=== PATIENT | female | born 1975 | race Caucasian/White ===

== ENCOUNTER 2021-10-18 13:55 | Outpatient (CLI) | payer OTHER, SELFPAY ==
[2021-10-18 14:20] LABS: Hemoglobin* 13.1 gm/dL (12.0-16.0)
[2021-10-20 11:00] LABS: Estradiol Premenol Female 68 pg/mL
[2021-10-20 20:19] LABS: Luteinizing Hormone 4.1 IU/L
[2021-10-20 22:49] LABS: Sex Hormone Binding Globulin 121 nmol/L (25-122); Testosterone, Adult Male < 3 ng/dL; Testosterone, Free Calculation < 1 pg/mL; Testosterone, Percentage Free < 0.7 %
== END 2021-10-18 13:56 | disposition home or self-care (01) ==
PROVIDERS: PCP Physician Assistant Medical; Visit Provider Physician Assistant Medical
DX: N95.1 Menopausal and female climacteric states (principal)
CPT/HCPCS: 82670; 83001; 83002; 84270; 84402; 84403; 84443; 85018

== ENCOUNTER 2023-05-26 08:15 | Outpatient (CLI) | payer OTHER, SELFPAY ==
--- OUTSIDE RECORDS SUMMARY | 2023-05-30 09:52 | XMS_ITS | Clinical Summary ---
Author Name Unknown Organization [facility] Address [place], [place] [address] Care Team Providers Care Stereoplotter Operator Name Role Phone Rosangela Roberts MD Primary Care Provide r Allergies Active Allergy Reactions Criticality Noted Date Comments Ciprofloxacin Hives,Itching 06/02/2006 I have taken the pill form and it has been fine. I had a reaction when I had it in an IV form only during a procedure for kidney stones in 2003. Rowena Queen CMA ..... 11/17/2015 9:43 AM Fruit Flavor Itching 07/22/2006 mouth itches from skins of fruit like cherries,apples Possible reaction from chemicals on fruit 07/17/2010 Penicillins Hives 06/02/2006 Vancomycin Hives,Itching 06/02/2006 Medications Medication Sig Dispensed Refills Start Date End Date Status multivitamin (MVI) tablet Take 1 tablet by mouth once daily. 0 03/08/2019 Active omeprazole 20 mg tabletIndications:Abd ominal pain, epigastric Take one tablet daily 30 minutes prior to breakfast. 30 Tablet 3 03/12/2021 Active FLUoxetine 20 mg tabletIndications:Anx iety and depression TAKE 1 TABLET(20 MG) BY MOUTH EVERY MORNING 30 Tablet 03/11/2022 Active Active Problems Problem Noted Date Diagnosed Date Gilbert's disease 04/26/2019 Medullary sponge kidney of both kidneys 04/26/19 20 Nephrolithiasis 04/26/2019 Dysmenorrhea 08/18/2012 Menorrhagia 08/18/2012 Resolved Problems Problem Noted Date Diagnosed Date Resolved Date delivery 09/03/2008 06/07/2011 Breech presentation 09/03/2008 06/07/19 12 Unstable lie of fetus, delivered 09/03/2008 06/07/2011 care and examinat ion of lactating mother 09/03/2008 06/07/2011 Supervision of other normal 08/25/2008 06/07/2011 Encounters Date Type Department Care Team Description 05/26/2023 Orders Only [facility] Scanner 1 scan: (1-Ord) [facility], NASAL ENDOSCOPY, 05/26/2023 from Last 3 Months Immunizations Name Administration Dates Next Due Influenza A (H1N1), Inactiva leila (Age >=3 Years) 12/22/2008 Influenza Virus, Unspecified 02/16/2008 Influenza, IIV3 (Age 6-35 mos) 03/16/2012 Influenza, IIV3 (Age >=3 years) 02/16/2008,01/01 Influenza, IIV4 02/05/2019,02/03/2017,11/17/2015 Td (Age >=7 Years) 04/28/2020 Tdap 10/31/2009 11/01/2019 Family History Medical History Relation Name Comments Heart Disease Father heart attack Hyperlipidemia Father Other Father perforated ulce r Thyroid Disease Maternal Grandmother Hyperlipidemia Mother Hypertension Sister 2 Relation Name Status Comments Father (Age 74) [facility] [place] Maternal Grandfather Maternal Grandmother Mother Alive Paternal Grandfather Paternal Grandmother Sister 1 Alive x2 Sister 2 Social History Tobacco Use Types Packs/Day Years Used Date Smoking Tobacco: Never Smokeless Tobacco: Never Tobacco Cessation:Counseling Given: Yes Alcohol Use Standard Drinks/Week Comments Yes 2.5 (1 standard drink = 0.6 oz p ure alcohol) 3 glasses per week. PHQ-2 Answer Date Recorded PHQ-2 TOTAL SCORE 0 11/22/2020 Social Connections Answer Date Recorded Frequency of Communication with Friends and Fami ly Not on file 02/17/2021 Financial Resource Strain Answer Date R ecorded Difficulty of Paying Living Expenses Not on file 02/17/2021 Difficulty of Paying Living Expenses Not on file 02/17/2021 Sex and Gender Information Value Date Recorded Sex Assigned at Not on file Gender Identity Not on file Sexual Orientation Not on file Obstetrics History Para Term AB IAB SAB Ectopic Multiple Livin g Live Births 4 3 3 0 1 0 1 0 0 3 3 Date Outcome GA Total Labor Labor/2nd/3rd Weight Sex Delivery Anes PTL Lelia A1 A5 Name Cl in 09/18 Term 38w 0d 14h 00m/ 3.49 kg (7 lb 11 oz) M Martha ibarra matth ew 06/05 Term 37w 0d 10h 00m/ 3.26 kg (7 lb 3 oz) M Martha ibarra gayle 09/28 SAB 5w0 d 09/03 Term 37w 0d 3.13 kg (6 lb 14.2 oz) F Rody ibarra Loy sharpe Don paulino Last Filed Vital Signs Vital Sign Reading Time Taken Comments Blood Pressure 118/76 03/12/2021 10:57 AM MILLER HEAD ASSISTANT WET PROCESS Pulse 68 03/12/2021 10:57 AM MILLER HEAD ASSISTANT WET PROCESS Temperature 37 ??C (98.6 ??F) 03/15/2019 3:48 PM MILLER HEAD ASSISTANT WET PROCESS Respiratory Rate 20 03/15/2019 3:48 PM MILLER HEAD ASSISTANT WET PROCESS Oxygen Saturation 99% 03/15/2019 3:50 PM MILLER HEAD ASSISTANT WET PROCESS Inhaled Oxygen Concentration - - Weight 59.4 kg (131 lb) 03/12/2021 10:57 AM MILLER HEAD ASSISTANT WET PROCESS Height 171.5 cm (5' 7.5) 04/28/2020 10:01 AM CS T Body Mass Index 20.21 04/28/2020 10:01 AM MILLER HEAD ASSISTANT WET PROCESS Plan of Treatment Health Maintenance Due Date Last Done Comments Hepatitis C screening for age 18-79 05/07/1991 Colonoscopy through age 75 2018 BMI (ht and wt on same day) for age 18+ 04/28/2021 04/28/2020, 03/08/2019, 11/17/2015, Additional history exists Depression screening for age 12+ 04/28/2021 04/28/2020, 04/26/2019, 03/11/2019, Additional history exists Mammogram for age 45-75 06/09/2021 06/09/2020, 08/03 COVID-19 vaccine series ( - 2022- season) 2022 Zoster (shingles) series for age 50+ (1 of 2) 05/07/2023 Influenza for age 50-64 10/19/2023 02/06/20 19, 02/03/2017, 11/17/2015, Additional history exists Lipids for age 45-75 04/28/2025 04/28/2020, 08/04/2015, 12/12/2009 Tetanus booster 04/28/2030 04/28/2020, 10/18, 10/31/2009 HIV for age 15-65 Completed 02/16/2008 Tdap Completed 10/31/2009 Pneumococcal series for age 6-64 Aged Out No longer eligible based on patient's age to complete this topic Procedures Procedure Name Priority Date/Time Associated Diagnosis Comments SCAN-ENDOSCOPY 05/26/2023 12:00 AM CDT XR MAMMO BILAT SCREENING Routine 06/09/2020 8:38 AM CDT Encounter for screening for malignant neoplasm of breast, unspecified screening modality LIPID PANEL W REFLEX MEASURED LDL Routine 04/28/2020 10:49 AM MILLER HEAD ASSISTANT WET PROCESS Screening cholesterol level ANTI HIV 1/2 Routine 02/16/2008 10:53 AM MILLER HEAD ASSISTANT WET PROCESS Supervision of Other Normal from Last 3 Months or Most Recently Relevant to Health Maintenance Results * SCAN-ENDOSCOPY (05/26/2023 12:00 AM CDT) Scanner OTHER * XR MAMMO BILAT SCREENING (06/09/2020 8:38 AM CDT) Anatomical Region Laterality Modality BREASTS, Breast Left, Breast Right Bilateral Mammography Impressions 06/09/2020 11:57 AM CDT ??There is no radiographic evidence for malignancy. ??Recommend annual mammograms. MAMMOGRAM ASSESSMENT: ??ACR 1 Negative PATIENTS: You will also receive a letter with your examination results in an easy to read format. ??If you have questions about your results, please contact your referring provider. Narrative 06/09/2020 11:57 AM CDT XR MAMMO BILAT SCREENING [[id number]] CLINICAL HISTORY: ??This is an asymptomatic 45 y.o. patient. INDICATION FOR EXAM: Mammogram Screening. TECHNIQUE: CC & MLO views were obtained. ??This digital study was evaluated with the assistance of Computer-Aided Detection. COMPARISON FILM: Yes 08/04/15 ? FINDINGS: ??The breasts are extremely dense, which lowers the sensitivity of mammography. There are no dominant masses, suspicious micro calcifications or areas of architectural distortion. Consuelo Kohler DO MAMMO * LIPID PANEL W REFLEX MEASURED LDL (04/28/2020 10:49 AM MILLER HEAD ASSISTANT WET PROCESS) CHOLESTEROL,TOTAL 160 100 - 199 mg/dL 04/28/2020 4:41 PM MILLER HEAD ASSISTANT WET PROCESS [facility] TRIGLYCERIDES 64 <150 mg/dL 04/28/2020 4:41 PM MILLER HEAD ASSISTANT WET PROCESS [facility] HDL CHOLESTEROL 82 >40 mg/dL 4:41 PM MILLER HEAD ASSISTANT WET PROCESS [facility] NON-HDL CHOLESTEROL 78 <145 mg/dl 04/28/2020 4:41 PM MILLER HEAD ASSISTANT WET PROCESS [facility] CHOL/HDL RATIO 1.95 <4.50 04/28/2020 4:41 PM MILLER HEAD ASSISTANT WET PROCESS [facility] LDL CHOLESTEROL 65 <=130 mg/dL 04/28/2020 4:41 PM MILLER HEAD ASSISTANT WET PROCESS [facility] PROVIDER ORDERED STATUS RANDOM 04/28/2020 4:41 PM MILLER HEAD ASSISTANT WET PROCESS [facility] Blood BLOOD SPECIMEN / Unknown Venipuncture / Unknown 04/28/2020 10:49 AM MILLER HEAD ASSISTANT WET PROCESS 04/28/2020 10:49 AM MILLER HEAD ASSISTANT WET PROCESS Consuelo Kohler DO CHEMISTRY [facility] [address] [place] [address], * ANTI HIV 1/2 (02/16/2008 10:53 AM MILLER HEAD ASSISTANT WET PROCESS) ANTI HIV 1/2 Non-reacti ve [facility] Blood specimen (specimen) BLOOD SPECIMEN / Unknown 02/16/2008 10:53 AM MILLER HEAD ASSISTANT WET PROCESS 02/16/2008 10:43 AM MILLER HEAD ASSISTANT WET PROCESS Rosangela Roberts MD SEND OUTS [facility] INTERNAL ZIP [address] [address] from Last 3 Months or Most Recently Relevant to Health Maintenance Advance Directives * Full Code (Latest Code Status on File) Date Activated Date Inactivated Comments 03/15/2019 11:44 AM 03/15/2019 7:17 PM * Full Code Date Activated Date Inactivated Comments 03/15/2019 11:44 AM 03/15/2019 11:44 AM * Full Code Date Activated Date Inactivated Comments 11/27/2015 9:56 AM 11/27/2015 5:37 PM * Full Code Date Activated Date Inactivated Comments 11/27/2015 8:15 AM 11/27/2015 9:56 AM * Full Code Date Activated Date Inactivated Comments 09/03/2008 8:25 AM 09/03/2008 9:02 AM Care Teams Stereoplotter Operator Relationship Specialty Start Date End Date Rosangela Roberts MD [address] [place] [address] PCP - General 07/18/06
--- OUTSIDE RECORDS SUMMARY | 2023-05-30 09:53 | XMS_ITS | Encounter Summary ---
Author Name Unknown Organization [facility] Address [address] [place] [address]. [place] [address] Care Team Providers Care Boat Carpenter Mechanic Name Role Phone Rosangela Roberts MD Primary Care Provider [phone]- [phone] Emy Yates MD Unavailable [phone] Emy Yates MD Unavailable [phone] Melanie Solomon PA-C Unavailable [phone] Reason for Visit * Reason Onset Date Comments MyChart Communication 06/02/2017 Encounter Details Date Type Department Care Team (Late st Contact Info) Description 06/02/2017 MyC Medical Advice [facility] [id number] [place] [id number] [place] [address] [place] [address] MyChart Communication Social History Tobacco Use Types Packs/Day Years Used Date Smoking Tobacco: Former Cigarettes Q uit: 02/18/1992 Smokeless Tobacco: Never Comments:Used to smoke in co llege Alcohol Use Standard Drinks/Week Comments Yes 0 (1 standard drink = 0.6 oz pur e alcohol) 1-2 glasses/wk Sex and Gender Information Value Date Recorded Sex Assigned at Not on file Gender Identity Not on file Sexual Orientation Not on file documented as of this encounter Plan of Treatment Not on file documented as of this encounter Visit Diagnoses Not on filedocumented in this encounter Additional Health Concerns Assessment Noted Time PHQ-9 Depression Total Score: 0 05/30/19 18 7:43 AM CDT documented as of this encounter Care Teams Boat Carpenter Mechanic Relationship Specialty Start Date End Date Rosangela Roberts MD PCP - General Speciality Unknown 05/29/17 [place] [address] [place] [address] PCP - Assigned PCP 06/01/17 04/21/18 [place] [address] [place] [address] Assigned PCP 06/01/17 06/03/20 Melanie Solomon PA-C [address] [place] [address] Assigned Surgical Provider 02/11/21 documented as of this encounter
--- OUTSIDE RECORDS SUMMARY | 2023-05-30 09:53 | XMS_ITS | Clinical Summary ---
Author Name Unknown Organization [place] Address [address] [place] [address] Care Team Providers Care Pre Sales Network Engineer Name Role Phone Rosangela Roberts MD Primary Care Provider [phone] Melanie Solomon PA-C Unavailable [phone] Allergies Active Allergy Reactions Criticality Noted Date Comments Ciprofloxacin Hives 01/07/2006 When given through IV, ok to take in pill form Fruit Extracts Itching Low 07/22/2006 mouth itches from skins of fruit like cherries,apples Possible reaction from chemicals on fruit 07/17/2010 mouth itches from skins of fruit like cherries,apples Possible reaction from chemicals on fruit 07/17/2010 Penicillins Hives 01/07/2006 Vancomycin Hives 01/07/2006 Medications Medication Sig Dispensed Refills Start Date End Date Status Multiple Vitamin (DAILY MULTIVITAMIN PO) Active albuterol (PROAIR HFA/PROVENTIL HFA/VENTOLIN HFA) 108 (90 Base) MCG/ACT inhaler Inhale 2 puffs into the lungs every 4 hours as needed 06/13/2021 Active Active Problems Problem Noted Date Diagnosed Date Polyp of gallbladder 08/12/2022 08/12/2022 Gilbert's disease 04/26/2019 08/12/2022 Right sided abdominal pain 05/28/2017 Heart murmur 05/28/2017 Right flank pain 03/03/2014 08/12/2022 History of kidney stones 09/07/2013 023 Dysmenorrhea 08/18/2012 08/12/2022 Menorrhagia 08/18/2012 08/12/2022 Anxiety 06/21/2010 Nephrolithiasis Medullary sponge kidney Resolved Problems Problem Noted Date Diagnosed Date Resolved Date Epigastric pain 06/10/2013 05/28/2017 COPD (chronic obstructive pulmonary disease) 1 05/28/2017 CARDIOVASCULAR SCREENING; LD L GOAL LESS THAN 160 12/17/2009 05/28/2017 Mild major depression 08/22/20092017 Depressive disorder, not elsewhere classified 01/08/20 06 08/22/2009 Immunizations Name Administration Dates Next Due COVID-19 Vaccine (Edwin) 08/31/2020 Influenza (IIV3) PF 02/16/2008 TDAP (Adacel,Boostrix) 10/31/2009 Family History Medical History Relation Comments Heart Disease Father coronary artery disease Peptic Ulcer Disease Father Heart Disease Maternal Grandfather coronary ar izabela disease Kidney Disease Maternal Grandfather kidney fail ure Thyroid Disease Maternal Grandmother hyper Heart Disease Paternal Grandfather coronary ar izabela disease Rheumatoid Arthritis Paternal Grandfather Heart Disease Paternal Grandmother Heart Murmur Sister 1 No Known Problems Sister 2 Hypertension Sister 3 Relation Status Comments Daughter Alive Father Maternal Grandfather Maternal Grandmother Mother Alive Paternal Grandfather Paternal Grandmother Sister 1 Alive Sister 2 Alive Sister 3 Son 1 Alive Son 2 Alive Social History Tobacco Use Types Packs/Day Years Used Date Smoking Tobacco: Never Cigarettes Qu it: 02/18/1992 Smokeless Tobacco: Never Tobacco Cessation:Counseling Given: Not Answered Comments:Used to smoke in college Alcohol Use Standard Drinks/Week Comments Yes 0 (1 standard drink = 0.6 oz pur e alcohol) 1-2 glasses/wk Adolescent Education Answer Date Record ed Getting School Help Needed Not on file 11/16 Sex and Gender Information Value Date Recorded Sex Assigned at Not on file Gender Identity Not on file Sexual Orientation Not on file Last Filed Vital Signs Vital Sign Reading Time Taken Comments Blood Pressure 113/80 08/12/2022 1:57 PM CDT Pulse 63 08/12/2022 1:57 PM CDT Temperature 36.7 ??C (98 ??F) 08/12/2022 1:57 PM CDT Respiratory Rate 14 06/10/2013 3:12 PM CDT Oxygen Saturation 100% 08/12/2022 1:57 PM CDT Inhaled Oxygen Concentration - - Weight 60.8 kg (134 lb) 08/12/2022 1:57 PM CDT Height 170.8 cm (5' 7.25) 07/03/2017 3:15 PM CD T Body Mass Index 20.83 07/03/2017 3:15 PM CDT Plan of Treatment Health Maintenance Due Date Last Done Comments ADVANCE CARE PLANNING 1973 ANNUAL REVIEW OF HM ORDERS 1973 CT COLONOGRAPHY 1973 FIT 1973 FLEX SIG 1973 MAMMO SCREENING 1973 sDNA (Cologuard) 1973 COLONOSCOPY 05/07/1983 COLORECTAL CANCER SCREENING 05/07/1983 HIV SCREENING 1988 HEPATITIS C SCREENING 05/07/1991 HEPATITIS B IMMUNIZATION (1 of 3 - 19+ 3-dose series) 1992 GLUCOSE 06/15/2016 06/15/2013, 08/18, 11/03/2009, Additional history exists LIPID 06/15/2018 06/15/2013 YEARLY PREVENTIVE VISIT 04/28/2021 04/28/2020, 06/10 COVID-19 Vaccine (2 - season) 2022 08/31/2020 INFLUENZA VACCINE (#1) 2022 9, 02/03/2017, 11/17/2015, Additional history exists PHQ-2 (once per calendar year) 2023 05/28/2017 ZOSTER IMMUNIZATION (1 of 2) 05/07/2023 DTAP/TDAP/TD IMMUNIZATION (4 - Td or Tdap) 04/28/2030 04/28/2020, 04/28/2020, 10/31/2009 PAP Discontinued 09/18/2011, 10/18, 10/17/2008, Additional history exists HPV IMMUNIZATION Aged Out No longer e ligible based on patient's age to complete this topic IPV IMMUNIZATION Aged Out No longer e ligible based on patient's age to complete this topic MENINGITIS IMMUNIZATION Aged Out No l onger eligible based on patient's age to complete this topic Pneumococcal Vaccine: Pediatrics (0 to 5 Years) and At-Risk Patients (6 to 64 Years) Aged Out No longer eligible based on patient's age to complete this topic RSV MONOCLONAL ANTIBODY Aged Out No l onger eligible based on patient's age to complete this topic Procedures Procedure Name Priority Date/Time Associated Diagnosis Comments COMPREHENSIVE METABOLIC PANEL Routine 06/15/2013 8:49 AM CDT Routine general medical examination at a health care facility LIPID REFLEX TO DIRECT LDL PANEL Routine 06/15/2013 8:49 AM CDT Routine general medical examination at a health care facility PAP IMAGED THIN LAYER SCREEN Routine 09/18/2011 Screening for malignant neoplasm of the cervix from Last 3 Months or Most Recently Relevant to Health Maintenance Results * LIPID REFLEX TO DIRECT LDL PANEL (06/15/2013 8:49 AM CDT) Cholesterol 147 <200 mg/dL [facility] Comment: LDL Cholesterol is the primary guide to therapy. The NCEP recommends further evaluation of: patients with cholesterol greater than 200 mg/dL if additional risk factors are present, cholesterol greater than 240 mg/dL, triglycerides greater than 150 mg/dL, or HDL less than 40 mg/dL. Triglycerides 69 0 - 150 mg/dL [facility] HDL Cholesterol 57 >50 mg/dL [facility] LDL Cholesterol Calculated 75 0 - 129 mg/dL [facility] Comment: LDL Cholesterol is the primary guide to therapy: LDL-cholesterol goal in high risk patients is <100 mg/dL and in very high risk patients is <70 mg/dL. VLDL-Cholesterol 14 0 - 30 mg/dL [facility] Cholesterol/HDL Ratio 2.6 0.0 - 5.0 [facility] Blood specimen (specimen) 06/15/2013 8:49 AM CDT 06/15/2013 8:50 AM CDT Emily Adkins PA-C LAB - BLOOD ORDERABLES [facility] [address] [place] [address] * (ABNORMAL) Comprehensive metabolic panel (BMP + Alb, Alk Phos, ALT, AST, Total. Bili, TP) (06/15/2013 8:49 AM CDT) Sodium 141 133 - 144 mmol/L [facility] Potassium 3.8 3.4 - 5.3 mmol/L [facility] Chloride 103 94 - 109 mmol/L [facility] Carbon Dioxide 27 20 - 32 mmol/L [facility] Anion Gap 12 6 - 17 mmol/L [facility] Glucose 82 60 - 99 mg/dL [facility] Comment:Fasting specimen Urea Nitrogen 12 5 - 24 mg/dL [facility] Creatinine 0.68 0.52 - 1.04 mg/dL [facility] GFR Estimate >90 >60 mL/min/1.7 m2 [facility] GFR Estimate If Black >90 >60 mL/min/1.7 m2 [facility] Calcium 8.8 8.5 - 10.4 mg/dL [facility] Bilirubin Total 1.6(H) 0.2 - 1.3 mg/dL [facility] Albumin 4.2 3.9 - 5.1 g/dL [facility] Comment:Reference range mao ged on 11/10/2007. Protein Total 7.1 6.8 - 8.8 g/dL [facility] Comment:As of 07, refer ence range reflects plasma specimen type. Alkaline Phosphatase 60 40 - 150 U/L [facility] ALT 30 0 - 50 U/L [facility] AST 21 0 - 45 U/L [facility] Blood specimen (specimen) 06/15/2013 8:49 AM CDT 06/15/2013 8:50 AM CDT Emily Adkins PA-C LAB - BLOOD ORDERABLES Performing Organization Address City/[facility] Co de Phone Number [facility] [address] [place] [address] * PAP imaged thin layer screen (09/18/2011) PAP Date MISYS PAP MISYS Cytologic material (specimen) Rocky Lo PA-C LAB - OPTIME CLINICAL SPECIMEN Performing Organization Address City/[facility]/ZIP Co de Phone Number MISYS from Last 3 Months or Most Recently Relevant to Health Maintenance Care Teams Pre Sales Network Engineer Relationship Specialty Start Date End Date Rosangela Roberts MD PCP - General Speciality Unknown 05/29/17 Melanie Solomon PA-C [address] [place] [address] Assigned Surgical Provider 02/11/21
--- OUTSIDE RECORDS SUMMARY | 2023-05-30 09:53 | XMS_ITS | Referral Summary ---
Author Name Unknown Organization [place] Address [address] [place] [address] Care Team Providers Care Mortgage Professional Name Role Phone Rosangela Roberts MD Primary Care Provider [phone] Melanie Solomon PA-C Unavailable [phone] Allergies Active Allergy Reactions Criticality Noted [...] Influenza (IIV3) PF 02/16/2008 TDAP (Adacel,Boostrix) 10/31/2009 Social History Tobacco Use Types Packs/Day Years [...] 07/03/2017 3:15 PM CDT Plan of Treatment Not on file Procedures Procedure Name Priority Date/Time Associated Diagnosis [...] 8:49 AM CDT) Cholesterol 147 <200 mg/dL [facility] Comment: LDL Cholesterol is the primary guide to therapy. The NCEP recommends further evaluation of: patients with cholesterol greater than 200 mg/dL if additional risk factors are present, cholesterol greater than 240 mg/dL, triglycerides greater than 150 mg/dL, or HDL less than 40 mg/dL. Triglycerides 69 0 - 150 mg/dL [facility] HDL Cholesterol 57 >50 mg/dL [facility] LDL Cholesterol Calculated 75 0 - 129 mg/dL [facility] Comment: LDL Cholesterol is the primary guide to therapy: LDL-cholesterol goal in high risk patients is <100 mg/dL and in very high risk patients is <70 mg/dL. VLDL-Cholesterol 14 0 - 30 mg/dL [facility] Cholesterol/HDL Ratio 2.6 0.0 - 5.0 [facility] Blood specimen (specimen) 06/15/2013 8:49 AM CDT 06/15/2013 8:50 AM CDT Emily Adkins PA-C LAB - BLOOD ORDERABLES [facility] [address] [place], [place] [id number] * (ABNORMAL) Comprehensive metabolic panel (BMP + Alb, Alk Phos, ALT, AST, Total. Bili, TP) (06/15/2013 8:49 AM CDT) Sodium 141 133 - 144 mmol/L [facility] Potassium 3.8 3.4 - 5.3 mmol/L [facility] Chloride 103 94 - 109 mmol/L [facility] Carbon Dioxide 27 20 - 32 mmol/L [facility] Anion Gap 12 6 - 17 mmol/L [facility] Glucose 82 60 - 99 mg/dL [facility] Comment:Fasting specimen Urea Nitrogen 12 5 - 24 mg/dL [facility] Creatinine 0.68 0.52 - 1.04 mg/dL [facility] GFR Estimate >90 >60 mL/min/1.7 m2 [facility] GFR Estimate If Black >90 >60 mL/min/1.7 m2 [facility] Calcium 8.8 8.5 - 10.4 mg/dL [facility] Bilirubin Total 1.6(H) 0.2 - 1.3 mg/dL [facility] Albumin 4.2 3.9 - 5.1 g/dL [facility] Comment:Reference range mao ged on 11/10/2007. Protein Total 7.1 6.8 - 8.8 g/dL [facility] Comment:As of 07, refer ence range reflects plasma specimen type. Alkaline Phosphatase 60 40 - 150 U/L [facility] ALT 30 0 - 50 U/L [facility] AST 21 0 - 45 U/L [facility] Blood specimen (specimen) 06/15/2013 8:49 AM CDT 06/15/2013 8:50 AM CDT Emily Adkins PA-C LAB - BLOOD ORDERABLES Performing Organization Address City/[facility] Co de Phone Number [facility] [address] [place] [address] * PAP imaged thin layer screen (09/18/2011) PAP Date MISYS PAP MISYS Cytologic material (specimen) Rocky Lo PA-C LAB - OPTIME CLINICAL SPECIMEN MISYS from Last 3 Months or Most Recently Relevant to Health Maintenance Care Teams Mortgage Professional Relationship Specialty Start Date End Date Rosangela Roberts MD PCP - General Speciality Unknown 05/29/17 Melanie Solomon PA-C [address] [place] [address] Assigned Surgical Provider 02/11/21
== END 2023-05-26 08:16 | disposition home or self-care (01) ==
LOC: NFLDREF 05-30 09:50
PROVIDERS: PCP Physician Assistant Medical; Referring Provider Physician Assistant Medical; Visit Provider Physician Assistant Medical
DX: Z13.220 Encounter for screening for lipoid disorders (principal); Z13.29 Encounter for screening for other suspected endocrine disorder
CPT/HCPCS: 80061; 84443

== ENCOUNTER 2023-12-01 07:06 | Outpatient (CLI) | payer OTHER, SELFPAY ==
--- OUTSIDE RECORDS SUMMARY | 2023-12-01 07:09 | XMS_ITS ---
Author Organization [facility] Address [address] [place] [address] Care Team Providers Care Um Rn Name Role Phone Kylah Mojica Primary Care Provider GONZALO Jacobo [phone] None, None Unavailable Unavailable REASON FOR VISIT rx for prednisone Encounters Encounter Location Date Provider Diagnosis [facility] [address] [place] [address] 10/07/2023 GONZALO WATSON Plan Of Treatment No Information Progress Notes * Marian GARCIA SDOB:1975 (48 yo F)Acc No.[id number]:10/07/2023 Patient:?Marian GARCIA :1975???Age:48 Y???Sex:Female Address:[address] [place] [address] [place] [address] * true * Date:? Generated for Printi ng/Faeneg/eTransmitting on:?12/01/2023 07:08 AM CDT
--- OUTSIDE RECORDS SUMMARY | 2023-12-01 07:09 | XMS_ITS ---
Author Organization [facility] Address [address] [place] [address] Care Team Providers Care Indian Trader Name Role Phone Kylah Mojica Primary Care Provider GONZALO Jacobo [phone] None, None Unavailable Unavailable REASON FOR VISIT sinus head ache Encounters Encounter Location Date Provider Diagnosis [facility] [address] [place] [address] 09/24/2023 GONZALO WATSON Plan Of Treatment No Information Progress Notes * Marian GARCIA SDOB:1975 (48 yo F)Acc No.[id number]:09/24/2023 Patient:?Marian GARCIA :1975???Age:48 Y???Sex:Female Address:[address] [place] [address] [place] [address] * true * Date:? Generated for Printi ng/Marthag/eTransmitting on:?12/01/2023 07:09 AM CDT
--- OUTSIDE RECORDS SUMMARY | 2023-12-01 07:09 | XMS_ITS ---
Author Organization [facility] Address [address] [place] [address] Care Team Providers Care Manager Services Name Role Phone Kylah Mojica Primary Care Provider UnavailGONZALO Lock Unavailable [phone] None, None Unavailable Unavailable Allergies Allergen (clinical drug ingredient) Drug/Non Drug Allergy documented on EMR Reaction Allergy Type Onset Date Status ciprofloxacin Cipro IV Drug Allergy Act vaibhav Penicillin Unknown Drug Allergy Active vancomycin Vancomycin Unknown Drug Allergy Activ e REASON FOR VISIT Post Op Medications Medication SIG (Take, Route, Frequency, Duration) Notes Start Date End Date Status Albuterol Sulfate HFA 108 (90 Base) MCG/ACT Inhalation for 16 Days Active FLUoxetine HCl 20 MG TAKE 1 CAPSULE BY M OUTH DAILY Oral for 90 Days Active predniSONE 10 MG take 5 tabs po qAM w ith food x 5 days, then decrease by one tab per day over the next 4 days Orally Once a day for 9 days 10/07/2023 10/16/2023 Active Montelukast Sodium 10 MG TAKE 1 TABLET B Y MOUTH EVERY DAY FOR ASTHMA OR ALLERGIES Oral for 90 Days Active Budesonide 0.5 MG/2ML 2 ml Nasally twice daily for 2 weeks for 14 days 10/07/2023 Active Wixela Inhub 250-50 MCG/ACT INHALE 1 PUFF BY MOUTH TWICE DAILY Inhalation for 30 Days Active Social History Tobacco Use: Social History Observation Description Date Details (start date - stop date) Never Smoker NA - NA Alcohol Screen Question Answer Notes Did you have a drink contain ing alcohol in the past year? Yes How often did you have a dri nk containing alcohol in the past year? 2 to 4 drinks a month (2 points) How many drinks did you have on a typical day when you were drinking in the past year? 3 or 4 drinks (1 point) How often did you have 6 or more drinks on one occasion in the past year? Never (0 point) Tobacco Control (Standard) Question Answer Notes Tobacco use: Nonsmoker Vital Signs Height 67 in 10/07/2023 BMI 21.14 kg/m2 10/07/2023 Height-cm 170.18 cm 10/07/2023 Weight-kg 61.23 kg 10/07/2023 Weight 135 lbs 10/07/2023 Encounters Encounter Location Date Provider Diagnosis [facility] [place] [address] [place] [address] 10/07/2023 GONZALO WALTER Chronic maxillary sinusitis J32.0 ; Chronic ethmoidal sinusitis J32.2 ; Chronic frontal sinusitis J32.1 ; Environmental allergies Z91.09 ; Chronic rhinitis J31.0 and PND (post-nasal drip) R09.82 Assessments Encounter Date Diagnosis (ICD Code) Assessment Notes Treat ment Notes Treatment Clinical Notes 10/07/2023 Chronic maxillary sinusitis (ICD-10 - J32.0) Pt is doing well following FESS. Packing was removed bilaterally today. The operated sinuses were debrided. There is no abnormal debris or bleeding. We discussed a plan to initiate sinus irrigations in the coming days. 10/07/2023 Chronic ethmoidal sinusitis (ICD-10 - J32.2) 10/07/2023 Chronic frontal sinusitis (ICD-10 - J32.1) 10/07/2023 Environmental allergies (ICD-10 - Z91.09) 10/07/2023 Chronic rhinitis (ICD-10 - J31.0) 10/07/2023 PND (post-nasal drip) (ICD-10 - R09.82) Plan Of Treatment Medication Medication Name Sig Start Date Stop Date Notes predniSONE 10 MG take 5 tabs po qAM w ith food x 5 days, then decrease by one tab per day over the next 4 days Orally Once a day for 9 days 10/07/2023 10/16/2023 Budesonide 0.5 MG/2ML 2 ml Nasally twice daily for 2 weeks for 14 days 10/07/2023 Treatment Notes Assessment Notes Chronic maxillary sinusitis Pt is doing well following FESS. Packing was removed bilaterally today. The operated sinuses were debrided. There is no abnormal debris or bleeding. We discussed a plan to initiate sinus irrigations in the coming days. Next Appt Details Follow Up: as directed, 1 We ek, Reason: Progress Notes * Marian GARCIA SDOB:1975 (48 yo F)Acc No.[id number]:10/07/2023 Patient:?Marian GARCIA S Provider:?GONZALO WATSON MD :1975???Age:48 Y???Sex:Female D ate:10/07/2023 Address:[address] [place] [address] [id number] Pcp:Kylah Mojica Subjective: * Chief Complaints: * ???Post Op * HPI: ???--Narrative--:?Current visit summary:?Patient presents to the clinic today for a 4-week follow up on her cosmetic rhino/septo/FESS/turbs. Patient explains that she still feels congested and pressure withing her sinuses. She has continued the saline rinses, but symptoms have worsened over the past week.?Narrative:? Patient is s/p FESS. Doing well. Has no abnormal bleeding. Good pain control. No complaints. * Medical History:? * Surgical History:?Nose Hyste rectomy rhino/septo/turbs 08/2023 * Hospitalization/Major Diagno stic Procedure:?Denies Past Hospitalization * Family History:?Mother: Hear ing Loss,Environmental allergies.?Siblings: Environmental allergies.?Paternal Grand Father: None.?Paternal Grand Mother: None.?Maternal Grand Father: Hearing Loss.?Maternal Grand Mother: Environmental allergies.? * Social History:?Tobacco Use:?Tobacco Control (Standard)?Tobacco use:?Nonsmoker ???Alcohol Use:?Alcohol Screen?Did you have a drink containing alcohol in the past year??Yes ?How often did you have 6 or more drinks on one occasion in the past year??Never (0 point) ?How many drinks did you have on a typical day when you were drinking in the past year??3 or 4 drinks (1 point) ?How often did you have a drink containing alcohol in the past year??2 to 4 drinks a month (2 points) ?Recreational drugs?Recreational Drug Use:?No * Medications:?TakingWixela In hub 250-50 MCG/ACT Aerosol Powder Breath Activated INHALE 1 PUFF BY MOUTH TWICE DAILY Inhalation Albuterol Sulfate HFA 108 (90 Base) MCG/ACT Aerosol Solution Inhalation FLUoxetine HCl 20 MG Capsule TAKE 1 CAPSULE BY MOUTH DAILY Oral Montelukast Sodium 10 MG Tablet TAKE 1 TABLET BY MOUTH EVERY DAY FOR ASTHMA OR ALLERGIES Oral Medication List reviewed and reconciled with the patientTaking Wixela Inhub 250-50 MCG/ACT Aerosol Powder Breath Activated INHALE 1 PUFF BY MOUTH TWICE DAILY Inhalation Taking Albuterol Sulfate HFA 108 (90 Base) MCG/ACT Aerosol Solution Inhalation Taking FLUoxetine HCl 20 MG Capsule TAKE 1 CAPSULE BY MOUTH DAILY Oral Taking Montelukast Sodium 10 MG Tablet TAKE 1 TABLET BY MOUTH EVERY DAY FOR ASTHMA OR ALLERGIES Oral Medication List reviewed and reconciled with the patient * Allergies:?PenicillinVancomy cinCipro: IVno[Allergies Verified] Objective: * Vitals:?Wt-lbs: 135 lbs, Ht: 67in, BMI:21.14Index, Ht-cm: 170.18 cm, Wt-k.23 kg. * Examination: ???Constitutional: ?General Appearance:?Appropriate for stated age, no obvious distress.?Ability to Communicate:?appropriate.?Head and Face: ?Appearance and Symmetry:?Normal, no scalp or facial scarring or suspicious lesions.?Paranasal sinuses tenderness:?Normal, Paranasal sinuses non tender.?Nose: ?Architecture:?Grossly normal external nasal architecture with no masses or lesions.?Mucosa:?moderate edema,mucoid rhinorrhea.?Septum:?Normal, Septum non obstructing.?Turbinates:?Normal, no turbinate abnormalities.?Oral Cavity and Oropharynx: ?Lips:?Normal.?Dental and gingiva:?Normal, No obvious dental or gingival disease.?Mucosa:?Normal, Moist mucous membranes.?Tongue:?Normal, Tongue mobile with no mucosal abnormalities.?Hard and soft palate:?Normal , Hard and soft palate without cleft or mucosal lesions.?Tonsils:?Normal, Tonsils free of lesions and not enlarged.?Oral pharynx:?Normal, Posterior pharynx without lesions or remarkable asymmetry.?Saliva:?Normal, Clear saliva.?Masses:?Normal, No palpable masses or pathologically enlarged lymph nodes.?Neurological: ?Alertness and orientation:?Normal, Responsive, correct orintation demonstration, place, time and situation.?Cranial Nerves II-XII?Normal.?Cranial nerves facial:?Normal.?Eyes: ?Appearance?Normal extraocular movements without esotropia or extropia, Pupils normal, Conjunctiva normal.?Nasal Endoscopy: ???Normal post-surgical changes with no abnormal crusting or debris - debrided. Assessment: * Assessment: 1.?Chronic maxillary sinusit is - J32.0 (Primary)???2.?Chronic ethmoidal sinusitis - J32.2???3.?Chronic frontal sinusitis - J32.1???4.?Environmental allergies - Z91.09???5.?Chronic rhinitis - J31.0???6.?PND (post-nasal drip) - R09.82??? Marian is one month s/p bilate ral maxillary, ethmoid, and frontal sinus surgery with combined septorhinoplasty by Dr. Renee.? Over the past 2 weeks, she has had progressive nasal stuffiness, facial pressure, and PND with a cough at night.? She is using nasal saline and flonase and remains on her allergy medications.? Bilateral nasal endoscopy shows edematous mucosa but no purulence.? An oral prednisone burst and budesonide rinses are prescribed.? F/u if not improved. Plan: * Treatment: 2.?Others? Start predniSONE Tablet, 10 MG, take 5 tabs po qAM with food x 5 days, then decrease by one tab per day over the next 4 days, Orally, Once a day, 9 days, 35, Refills 0;?Start Budesonide Suspension, 0.5 MG/2ML, 2 ml, Nasally, twice daily for 2 weeks, 14 days, 28, Refills 3.?? * Procedures:?PROCEDURE NOTE ANESTHESIA: Topical Lidocaine/phenylephrine FINDINGS: Moderate edema in post-operative areas PROCEDURE: After topical anesthesia and vasoconstriction were established, the nasal endoscope was introduced into the operated naris. Maxillary antrostomies and anterior ethmoid cavities patent but marked mucosal edema TOLERANCE: good. ? * Procedure Codes:?93487 Nasal endoscopy/bx/debride/polypectomy/unilat (in- office), Modifiers: 50 * Follow Up:?as directed, 1 We ek * * Sign off status: Completed true * Provider:?GONZALO WATSON MD Date:? 024 Generated for Carlie ibarra/Jaziel/eTadalbertosmitting on:?12/01/2023 07:08 AM CDT History and Physical Notes * HPI (History of Present Illness) Category Sub-Category Detail Notes --Narrative-- Current visit summary: Patient p resents to the clinic today for a 4-week follow up on her cosmetic rhino/septo/FESS/turbs. Patient explains that she still feels congested and pressure withing her sinuses. She has continued the saline rinses, but symptoms have worsened over the past week Examination Category Sub-Category Detail Notes Constitutional General Appearance: Appropriate for stated age, no obvious distress Ability to Communicate: appropriate Head and Face Appearance and Symmetry: Normal, no scalp or facial scarring or suspicious lesions Paranasal sinuses tenderness: Normal, Pa ranasal sinuses non tender Nose Architecture: Grossly normal e xternal nasal architecture with no masses or lesions Mucosa: moderate edema, muco id rhinorrhea Septum: Normal, Septum non o bstructing Turbinates: Normal, no turbinate abnormalities Oral Cavity and Oropharynx Lips: [place] l Dental and gingiva: Normal, No obvious d ental or gingival disease Mucosa: Normal, Moist mucous membranes Tongue: Normal, Tongue mobil e with no mucosal abnormalities Hard and soft palate: Normal , Hard and soft palate without cleft or mucosal lesions Tonsils: Normal, Tonsils free of lesions and not enlarged Oral pharynx: Normal, Posterior ph arynx without lesions or remarkable asymmetry Saliva: Normal, Clear saliva Masses: Normal, No palpable masses or pathologically enlarged lymph nodes Larynx and Hypopharynx, mirr or or scope Voice Quality: Neurological Alertness and orientation: [place] l, Responsive, correct orintation demonstration, place, time and situation Cranial Nerves II-XII Normal Cranial nerves facial: Normal Cerebellar function: Respiratory Symmetry and Respiratory effort: Cardiovascular Peripheral vascular system: Eyes Appearance Normal extraocul ar movements without esotropia or extropia, Pupils normal, Conjunctiva normal
--- OUTSIDE RECORDS SUMMARY | 2023-12-01 07:09 | XMS_ITS | Clinical Summary ---
Author Organization [facility] Address [address] [place] [address] Care Team Providers Care Roll Carrier Name Role Phone Rosangela Roberts MD Primary Care Provider [phone] Allergies Active Allergy Reactions Criticality Noted Date [...] 19+ 3-dose series) 1992 GLUCOSE 06/15/2016 06/15/2013, 07/10/2010, 11/03/2009, Additional history exists LIPID 06/15/2018 06/15/2013 YEARLY PREVENTIVE VISIT 04/28/2021 04/28/2020, 06/10 PHQ-2 (once per calendar year) 2023 05/28/2017 ZOSTER IMMUNIZATION (1 of 2) 05/07/2023 COVID-19 Vaccine (2 - season) 2023 08/31/2020 INFLUENZA VACCINE (#1) 2023 9, 02/03/2017, 11/17/2015, Additional history exists DTAP/TDAP/TD IMMUNIZATION (4 - Td or Tdap) 04/28/2030 04/28/2020, 04/28/2020, 10/31/2009 RSV VACCINE (1 - 1-dose 75+ series) 2048 PAP Discontinued 09/18/2011, 10/18, 10/17/2008, Additional history [...] Procedure Name Priority Date/Time Associated Diagnosis Comments SURGICAL PATHOLOGY EXAM Routine 09/09/2023 8:15 AM CDT Hypertrophy of nasal turbinates Chronic frontal sinusitis Chronic ethmoidal sinusitis Chronic maxillary sinusitis COMPREHENSIVE METABOLIC PANEL Routine 06/15/2013 8:49 AM [...] Recently Relevant to Health Maintenance Results * Surgical Pathology Exam (09/09/2023 8:15 AM CDT) Case Report Surgical Pathology Report ? Case: [id number] ? Authorizing Provider: ??Bailee Stephens MD ? Collected: ? 09/09/2023 08:15 AM ? Ordering Location: ? [facility] ?Received: ?09/10/2023 08:37 AM ? [facility] ? Pathologist: ? Horace Ibrahim MD ? Specimens: ?? A) - Sinus ? B) - Sinus ? 09/15/2023 9:50 AM [facility] Final Diagnosis A. Right sinus contents: - Chronic sinusitis with allergic type nasal polyps and fragments of benign bone with benign sinus mucosa B. Left sinus contents: - Chronic sinusitis with fragments of benign bone and benign sinus mucosa - Benign peripheral nerve tissue present in specimen 09/15/2023 9:50 AM [facility] Clinical Information 48-year-old female. Chronic sinusitis 09/15/2023 9:50 AM [facility] Gross Description A(). Sinus, : The specimen is received in formalin labeled with the patient's name, medical record number and other identifying information and designated right sinus contents. It consists of a 1.5 x 1.0 x 0.3 cm aggregate of adames-white focally bony soft tissue fragments. Wrapped and entirely submitted in 1 cassette following decalcification . B(). Sinus, : The specimen is received in formalin labeled with the patient's name, medical record number and other identifying information and designated left sinus contents. It consists of a 1.5 x 1.0 x 0.3 cm aggregate of adames-white focally bony soft tissue fragments. Wrapped and entirely submitted in 1 cassette following decalcification . (DAVID Dela Cruz [facility]) 09/10/2023 10:16 AM 09/15/2023 9:50 AM [facility] Microscopic Description A. The sections of sinus mucosa with a dense chronic inflammatory infiltrate with numerous eosinophils, plasma cells and lymphocytes with a focal polypoid architecture. Fragments of bone and sinus mucosa with minor salivary gland tissue is also present. B. Sections show sinus mucosa with a chronic inflammatory infiltrate comprised of eosinophils, plasma cells and lymphocytes without evidence of polyps. Fragments of bone and sinus mucosa with minor salivary gland tissue is also present. 09/15/2023 9:50 AM CDT LABORATORY Performing Labs The technical component of this testing was completed at [facility]. Stain controls for all stains resulted within this report have been reviewed and show appropriate reactivity. 09/15/2023 9:50 AM CDT LABORATORY Case Images 09/15/2023 9:50 AM CDT LABORATORY Tissue SINUS / Unknown 09/09/2023 8 :15 AM CDT 09/10/2023 8:37 AM CDT Tissue specimen (specimen) SINUS / Unknown 09/09/2023 8:15 AM CDT 09/10/2023 8:37 AM CDT Bailee Stephens MD [facility] [address], [address] [place] [address], [facility] [phone] * LIPID REFLEX TO DIRECT LDL PANEL (06/15/2013 8:49 AM CDT) Cholesterol 147 <200 mg/dL [facility] Comment: LDL Cholesterol is the primary guide to therapy. The NCEP recommends further evaluation of: patients with cholesterol greater than 200 mg/dL if additional risk factors are present, cholesterol greater than 240 mg/dL, triglycerides greater than 150 mg/dL, or HDL less than 40 mg/dL. Triglycerides 69 0 - 150 mg/dL [facility] HDL Cholesterol 57 >50 mg/dL [facility] LDL Cholesterol Calculated 75 0 - 129 mg/dL [facility] Comment: LDL Cholesterol is the primary guide to therapy: LDL-cholesterol goal in high risk patients is <100 mg/dL and in very high risk patients is <70 mg/dL. VLDL-Cholesterol 14 0 - 30 mg/dL [facility] Cholesterol/HDL Ratio 2.6 0.0 - 5.0 [facility] Blood specimen (specimen) 06/15/2013 8:49 AM CDT 06/15/2013 8:50 AM CDT Emily Adkins PA-C LAB - BLOOD ORDERABLES [facility] [address] [place] [address] * (ABNORMAL) Comprehensive metabolic panel (BMP + Alb, Alk Phos, ALT, AST, Total. Bili, TP) (06/15/2013 8:49 AM CDT) Sodium 141 133 - 144 mmol/L [facility] Potassium 3.8 3.4 - 5.3 mmol/L [facility] Chloride 103 94 - 109 mmol/L [facility] Carbon Dioxide 27 20 - 32 mmol/L [facility] Anion Gap 12 6 - 17 mmol/L [facility] Glucose 82 60 - 99 mg/dL [facility] Comment:Fasting specimen Urea Nitrogen 12 5 - 24 mg/dL [facility] Creatinine 0.68 0.52 - 1.04 mg/dL [facility] GFR Estimate >90 >60 mL/min/1.7 m2 [facility] GFR Estimate If Black >90 >60 mL/min/1.7 m2 [facility] Calcium 8.8 8.5 - 10.4 mg/dL [facility] Bilirubin Total 1.6(H) 0.2 - 1.3 mg/dL [facility] Albumin 4.2 3.9 - 5.1 g/dL [facility] Comment:Reference range mao ged on 11/10/2007. Protein Total 7.1 6.8 - 8.8 g/dL [facility] Comment:As of 07, refer ence range reflects plasma specimen type. Alkaline Phosphatase 60 40 - 150 U/L [facility] ALT 30 0 - 50 U/L [facility] AST 21 0 - 45 U/L [facility] Blood specimen (specimen) 06/15/2013 8:49 AM CDT 06/15/2013 8:50 AM CDT Emily Adkins PA-C LAB - BLOOD ORDERABLES Performing Organization Address City/[facility]/ZIP Co de Phone Number [address] [address] * PAP imaged thin layer screen (09/18/2011) PAP Date MISYS PAP MISYS Cytologic material (specimen) Rocky Lo PA-C LAB - OPTIME CLINICAL SPECIMEN Performing Organization Address City/[facility]/ZIP Co de Phone Number MISYS from Last 3 Months or Most Recently Relevant to Health Maintenance Care Teams Roll Carrier Relationship Specialty Start Date End Date Rosangela Roberts MD PCP - General Speciality Unknown 05/29/17
--- OUTSIDE RECORDS SUMMARY | 2023-12-01 07:09 | XMS_ITS | Clinical Summary ---
Author Organization [facility] Address [place], [place] [address] Care Team Providers Care Masonry Supervisor Name Role Phone Rosangela Roberts MD Primary [...] Encounters Date Type Department Care Team Description 10/07/2023 Orders Only [facility] Scanner 1 scan: (1-Ord) [facility], NASAL ENDOSCOPY, 10/07/2023 09/15/2023 Orders Only [facility] Scanner 1 scan: (1-Ord) [facility], NASAL ENDOSCOPY/BX/DEBRIDE/POLPECTOMY;B ILAT, 09/15/2023 from Last 3 Months Immunizations Name Administration [...] Outcome GA Total Labor Labor/2nd/3rd Weight Sex Type Anes PTL Lelia A1 A5 Name Clin 09/18 Term 38w 0d 14h 00m/ 3.49 kg (7 lb 11 oz) M Vag Living henok 06/05 Term 37w 0d 10h 00m/ 3.26 kg (7 lb 3 oz) M Vag Living gayle 09/28 SAB 5w0 d 09/03 Term 37w 0d 3.13 kg (6 lb 14.2 oz) F C-Sec tion Living Mitra alejandre Last Filed Vital Signs Vital Sign Reading Time Taken Comments Blood Pressure 118/76 03/12/2021 10:57 AM [facility]IANCE CONSULTANT Pulse 68 03/12/2021 10:57 AM ALLIANCE CONSULTANT Temperature 37 ??C (98.6 ??F) 03/15/2019 3:48 PM ALLIANCE CONSULTANT Respiratory Rate 20 03/15/2019 3:48 PM ALLIANCE CONSULTANT Oxygen Saturation 99% 03/15/2019 3:50 PM ALLIANCE CONSULTANT Inhaled Oxygen Concentration - - Weight 59.4 kg (131 lb) 03/12/2021 10:57 AM ALLIANCE CONSULTANT Height 171.5 cm (5' 7.5) 04/28/2020 10:01 AM CS T Body Mass Index 20.21 04/28/2020 10:01 AM ALLIANCE CONSULTANT Plan of Treatment Health Maintenance Due Date Last Done Comments Hepatitis C screening for age 18-79 05/07/1991 Colonoscopy through age 75 2018 BMI (ht and wt on same day) for age 18+ 04/28/2021 04/28/2020, 03/08/2019, 11/17/2015, Additional history exists Depression screening for age 12+ 04/28/2021 04/28/2020, 04/26/2019, 03/11/2019, Additional history exists Mammogram for age 45-75 06/09/2021 06/09/2020, 08/03 Zoster (shingles) series for age 50+ (1 of 2) 05/07/2023 COVID-19 vaccine series ( season) 2023 Influenza for age 50-64 10/19/2023 02/06/20 19, 02/03/2017, 11/17/2015, Additional history exists Lipids for age 45-75 04/28/2025 04/28/2020, 08/04/2015, 12/12/2009 Tetanus booster 04/28/2030 04/28/2020, 10/18, 10/31/2009 HIV for age 15-65 Completed 02/16/2008 Tdap Completed 10/31/2009 Pneumococcal series for age 6-64 Aged Out No longer eligible based on patient's age to complete this topic Procedures Procedure Name Priority Date/Time Associated Diagnosis Comments SCAN-ENDOSCOPY 10/07/2023 12:00 AM CDT SCAN-ENDOSCOPY 09/15/2023 12:00 AM CDT XR MAMMO BILAT SCREENING Routine 06/09/2020 8:38 AM CDT Encounter for screening for malignant neoplasm of breast, unspecified screening modality LIPID PANEL W REFLEX MEASURED LDL Routine 04/28/2020 10:49 AM ALLIANCE CONSULTANT Screening cholesterol level ANTI HIV 1/2 Routine 02/16/2008 10:53 AM ALLIANCE CONSULTANT Supervision of Other Normal from Last 3 Months or Most Recently Relevant to Health Maintenance Results * SCAN-ENDOSCOPY (10/07/2023 12:00 AM CDT) Scanner OTHER * SCAN-ENDOSCOPY (09/15/2023 12:00 AM CDT) Scanner OTHER * XR [...] 11:57 AM CDT XR MAMMO BILAT SCREENING [[id number]] CLINICAL HISTORY: ??This is an asymptomatic 45 [...] W REFLEX MEASURED LDL (04/28/2020 10:49 AM ALLIANCE CONSULTANT) CHOLESTEROL,TOTAL 160 100 - 199 mg/dL 04/28/2020 4:41 PM [facility]IANCE CONSULTANT [facility] TRIGLYCERIDES 64 <150 mg/dL 04/28/2020 4:41 PM ALLIANCE CONSULTANT [facility] HDL CHOLESTEROL 82 >40 mg/dL 4:41 PM ALLIANCE CONSULTANT [facility] NON-HDL CHOLESTEROL 78 <145 mg/dl 04/28/2020 4:41 PM ALLIANCE CONSULTANT [facility] CHOL/HDL RATIO 1.95 <4.50 04/28/2020 4:41 PM ALLIANCE CONSULTANT [facility] LDL CHOLESTEROL 65 <=130 mg/dL 04/28/2020 4:41 PM ALLIANCE CONSULTANT [facility] PROVIDER ORDERED STATUS RANDOM 04/28/2020 4:41 PM ALLIANCE CONSULTANT [facility] Blood BLOOD SPECIMEN / Unknown Venipuncture / Unknown 04/28/2020 10:49 AM ALLIANCE CONSULTANT 04/28/2020 10:49 AM ALLIANCE CONSULTANT Consuelo Kohler DO CHEMISTRY [facility] [address] [place] [address], [place] * ANTI HIV 1/2 (02/16/2008 10:53 AM ALLIANCE CONSULTANT) ANTI HIV 1/2 Non-reacti ve [facility] Blood specimen (specimen) BLOOD SPECIMEN / Unknown 02/16/2008 10:53 AM ALLIANCE CONSULTANT 02/16/2008 10:43 AM ALLIANCE CONSULTANT Rosangela Roberts MD SEND OUTS [facility] INTERNAL ZIP [address] [address] from Last 3 Months or Most Recently [...] 8:25 AM 09/03/2008 9:02 AM Care Teams Masonry Supervisor Relationship Specialty Start Date End Date Rosangela Roberts MD [address] [place] [address] PCP - General 07/18/06
--- OUTSIDE RECORDS SUMMARY | 2023-12-01 07:09 | XMS_ITS | Patient Health Record ---
Author Organization [facility] Address [address] [place] [address] Care Team Providers Care Rn Embedded Name Role Phone Kylah Mojica Primary Care Provider UnavailGONZALO Lock Unavailable [phone] None, None Unavailable Unavailable DIAMANTE MELO Unavailable [phone] Allergies Allergen (clinical drug ingredient) Drug/Non Drug Allergy documented on EMR Reaction Allergy Type Onset Date Status ciprofloxacin Cipro IV Drug Allergy Act vaibhav Penicillin Unknown Drug Allergy Active vancomycin Vancomycin Unknown Drug Allergy Activ e Results Component Value Reference Range Notes CT Scan : Sinuses Fusion/Ryan dmarx with Coronals WO Reviewed date:06/05/2023 10:46:38 AM Interpretation: Performing Lab: Notes/Report: Original Report CDI Location: [place]:[facility] [place] EXAM: CT SINUS FUSION/LANDMARX WITHOUT CONTRAST, WITH CORONALS CLINICAL INFORMATION: Chronic sinusitis. History of undifferentiated embryonic nasal tissue resection. COMPARISON: None. TECHNICAL INFORMATION: AP and lateral digital artificial insemination technician radiographs were obtained followed by contiguous thin section axial images through the paranasal sinuses. High resolution coronal and sagittal reformatted images were generated. An optical disc with Fusion-compatible data was generated. INTERPRETATION: Soft Tissues: Limited soft tissue images demonstrate no gross nasopharyngeal, orbital or visualized intracranial abnormalities. Sphenoid Sinuses: Hypoplastic right sinus. It is nearly opacified. Opacified right sphenoethmoidal recess. Well-developed left sinus. Minimal mucosal thickening opacifies the left sphenoethmoidal recess. Ethmoid Sinuses: Well-developed bilaterally. Extensively opacified bilaterally. Aerated secretions noted in the posterior left air cells. The cribriform plate and lamina papyracea are intact. Frontal Sinuses: Well-developed bilaterally. Mucosal thickening nearly opacifies each sinus. The frontal recesses are opacified. Left Maxillary Sinus: Well-developed. Mucosal thickening/retained secretions most pronounced along the sinus floor measuring up to 18 mm. Patent ostium and infundibulum. Right Maxillary Sinus: Well-developed. Mucosal thickening/retained secretions most pronounced along the sinus floor measuring up to 16 mm. Opacified ostium and infundibulum. Nasal Cavity: 5 mm rightward nasal septal deviation. Superimposed 3 mm rightward osseous spur. Mild narrowing of the right nasal passage. Temporal Bones: Mastoid air cells and middle ear clefts are clear. Normal temporomandibular joints. Ancillary: Negative. CONCLUSION: 1. Extensively opacified frontal sinuses, ethmoid air cells, maxillary sinuses and right sphenoid sinus. 2. The sphenoethmoidal recesses, frontal recesses and right maxillary ostium/infundibulum are opacified. 3. 5 mm rightward nasal septal deviation and 3 mm rightward osseous spur with mild narrowing of the right nasal passage. [facility] is committed to minimizing radiation exposure while maintaining high-quality CT images. Technologists adjust the mA and/or kV according to each patient's size to optimize dose. Since we began voluntarily reporting to the [employer]'s Dose Index Registry, our average CT doses have been consistently lower than the national average. Read by: Barrett Dominguez M.D. Reviewed and Electronically Signed by: Barrett Dominguez M.D. Original Report CDI Location: [place]:[facility] EXAM: CT SINUS FUSIO N/LANDMARX WITHOUT CONTRAST, WITH CORONALS CLINICAL INFORMATION : Chronic sinusitis. History of undifferentiated embryonic nasal tissue resection. COMPARISON: None. TECHNICAL INFORMATIO N: AP and lateral digital artificial insemination technician radiographs were obtained followed by contiguo us thin section axial images through the paranasal sinuses. High resolution mariposa nal and sagittal reformatted images were generated. An optical disc with Fusion-compatible data was generated. INTERPRETATION: Soft Tissues: Limite d soft tissue images demonstrate no gross nasopharyngeal, orbital or visualize d intracranial abnormalities. Sphenoid Sinuses: Hy poplastic right sinus. It is nearly opacified. Opacified right sphenoethmoida l recess. Well-developed left sinus. Minimal mucosal thickening opacifies the left sphenoethmoidal recess. Ethmoid Sinuses: Wel l-developed bilaterally. Extensively opacified bilaterally. Aerated secretions noted in the posterior left air cells. The cribriform plate and lamina papyracea are intact. Frontal Sinuses: Wel l-developed bilaterally. Mucosal thickening nearly opacifies each sinus . The frontal recesses are opacified. Left Maxillary Sinus : Well-developed. Mucosal thickening/retained secretions most pronounced claudy g the sinus floor measuring up to 18 mm. Patent ostium and infundibulum. Right Maxillary Sinu s: Well-developed. Mucosal thickening/retained secretions most pronounced claudy g the sinus floor measuring up to 16 mm. Opacified ostium and infundibulum. Nasal Cavity: 5 mm r ightward nasal septal deviation. Superimposed 3 mm rightward osseous sp ur. Mild narrowing of the right nasal passage. Temporal Bones: Mast oid air cells and middle ear clefts are clear. Normal temporomandibular joints. Ancillary: Negative. CONCLUSION: 1. Extensively opaci fied frontal sinuses, ethmoid air cells, maxillary sinuses and right sphenoid sinus. 2. The sphenoethmoid al recesses, frontal recesses and right maxillary ostium/infundibulum are opacified. 3. 5 mm rightward na ezequiel septal deviation and 3 mm rightward osseous spur with mild narrowing of th e right nasal passage. [facility] is committed t o minimizing radiation exposure while maintaining high-quality CT imag es. Technologists adjust the mA and/or kV according to each patient's size to op timize dose. Since we began voluntarily reporting to the [employer]'s Dose Index Registry, our average CT doses have been consistently lo wer than the national average. Read by: Barrett Dominguez M.D. Reviewed and Electro nically Signed by: Barrett Dominguez M.D. Reason For Referral No Information Medications Medication SIG (Take, Route, Frequency, Duration) Notes Start Date End Date Status Fredy Inhub 250-50 MCG/ACT INHALE 1 PUF F BY MOUTH TWICE DAILY Inhalation for 30 Days Active Albuterol Sulfate HFA 108 (90 Base) MCG/ACT Inhalation for 16 Days Active FLUoxetine HCl 20 MG TAKE 1 CAPSULE BY M OUTH DAILY Oral for 90 Days Active Montelukast Sodium 10 MG TAKE 1 TABLET B Y MOUTH EVERY DAY FOR ASTHMA OR ALLERGIES Oral for 90 Days Active Budesonide 0.5 MG/2ML 2 ml Nasally twice daily for 2 weeks for 14 days 10/07/2023 Active Social History Tobacco Use: Social History [...] (Standard) Question Answer Notes Tobacco use: Nonsmoker Problems Problem Type SNOMED Code ICD Code Onset Dates Problem Status W/U Status Risk Notes Problem 67389925 Chronic rhinitis (J31.0) Active confirmed Problem Chronic sinusitis (68060975) Chronic sinusitis (J32.9) Active confirmed Problem 081962057 Nasal septal deviation (J34.2) Active confirmed Problem 109974215 Chronic rhinosinusitis (J32.9) Active confirmed Problem 48789278 PND (post-nasal drip) (R09.82) Active confirmed Problem 30422284 Hypertrophy of inferior nasal turbinate (J34.3) Active confirmed Problem 797545050 Environmental allergies (Z91.09) Active confirmed Problem 671183552 Moderate persistent asthma, unspecified whether complicated (J45.40) Active confirmed Problem 12654689 Chronic maxillar y sinusitis (J32.0) Active confirmed Problem 17930078 Chronic frontal sinusitis (J32.1) Active confirmed Problem 45157016 Chronic ethmoida l sinusitis (J32.2) Active confirmed Vital Signs Temperature 98.4 degrees Fahrenheit 07/02/2023 Height-cm 170.18 cm 10/07/2023 Weight-kg 61.23 kg 10/07/2023 Height 67 in 10/07/2023 Weight 135 lbs 10/07/2023 BMI 21.14 kg/m2 10/07/2023 Procedures Procedure Date Ordered Date Performed Result Body Sit e Surgery - Sinus 07/15/2023 07/15/202307/14 scheduled Surgery 07/07/2023 07/15/202307/14 scheduled Surgery 07/07/2023 07/15/202307/14 scheduled Encounters Encounter Location Date Provider Diagnosis [facility] [address] [place] [address] [address] [place] [address] 05/26/2023 GONZALO WATSON Chronic sinusitis J3 2.9 ; Chronic rhinitis J31.0 ; PND (post-nasal drip) R09.82 ; Environmental allergies Z91.09 and Moderate persistent asthma, unspecified whether complicated J45.40 [facility] [address] [place] [address] 07/02/2023 GONZALO WATSON Chronic maxillary sinusitis J32.0 ; Chronic ethmoidal sinusitis J32.2 ; Chronic frontal sinusitis J32.1 ; Nasal septal deviation J34.2 and Hypertrophy of inferior nasal turbinate J34.3 [facility] [address] [place] [address] 07/07/2023 DIAMANTE MELO Encounter for cosmet ic surgery Z41.1 [facility] [address] [place] [address] 07/07/2023 DIAMANTE MELO Chronic rhinosinusit is J32.9 ; Deviated septum J34.2 and Nasal turbinate hypertrophy J34.3 [facility] [address] [place] [address] 09/09/2023 GONZALO WATSON [facility] [address] [place] [address] 09/09/2023 DIAMANTE MELO [facility] [place] [address] [place] [address] 09/15/2023 DIAMANTE MELO Status post nasal surgery V45.89 and Status post nasal surgery Z98.890 [facility] [address] [place] [address] 10/07/2023 GONZALO ALEMANY Chronic maxillary sinusitis J32.0 ; Chronic ethmoidal sinusitis J32.2 ; Chronic frontal sinusitis J32.1 ; Environmental allergies Z91.09 ; Chronic rhinitis J31.0 and PND (post-nasal drip) R09.82 [facility] [address] [place] [address] 06/05/2023 GONZALO WATSON [facility] [address] [place] [address] 07/15/2023 GONZALO WASTON [facility] [address] [place] [address] 08/19/2023 GONZALO WATSON [facility] [address] [place] [address] 09/16/2023 DIAMANTE MELO [facility] [address] [place] [address] 09/24/2023 GONZALO WATSON [facility] [address] [place] [address] 10/07/2023 GONZALO WATSON [facility] [address] [place] [address] 09/09/2023 DIAMANTE MELO Assessments Encounter Date Diagnosis (ICD Code) Assessment Notes Treat ment Notes Treatment Clinical Notes 05/26/2023 Chronic sinusitis (ICD-10 - J32.9) 07/02/2023 Chronic maxillary sinusitis (ICD-10 - J32.0) 07/07/2023 Chronic rhinosinusitis (ICD-10 - J32.9) Ms. Cooper is scheduled to undergo functional endoscopic sinus surgery. I have also recommended septoplasty bilateral submucous resection of the inferior nasal turbinates. We discussed the risks and benefits of the procedure. The risks of surgery include but are not limited to bleeding, infection, scarring, asymmetry or flow through the nose after surgery, potential damage to the septum such as hematoma perforation, and the potential need for a revision procedure. She expressed understanding. Our office will contact her regarding scheduling 07/07/2023 Encounter for cosmetic surgery (ICD-10 - Z41.1) I have recommended a cosmetic rhinoplasty with an open approach using a columella incision. The open approach would allow me greater visualization of the dorsal hump. The goal of surgery would be to reduce the dorsal hump and narrow the nose. I would also plan to make the dorsal aesthetic lines parallel. We discussed the risks and benefits of the procedure. The risk of surgery include but are not limited to bleeding, infection, scarring, asymmetry of air flow through the nose after surgery, the potential for damage to the septum such as hematoma or perforation, potential dorsal irregularity is very symmetric, and the potential need for revision surgery. She expressed understanding. Photographs were obtained today 09/15/2023 Status post nasal surgery (ICD9-CM - V45.89) 07/02/2023 Chronic ethmoidal sinusitis (ICD-10 - J32.2) 07/07/2023 Deviated septum (ICD-10 - J34.2) 10/07/2023 Chronic maxillary sinusitis (ICD-10 - J32.0) Pt is doing well following FESS. Packing was removed bilaterally today. The operated sinuses were debrided. There is no abnormal debris or bleeding. We discussed a plan to initiate sinus irrigations in the coming days. 05/26/2023 Chronic rhinitis (ICD-10 - J31.0) 10/07/2023 Chronic ethmoidal sinusitis (ICD-10 - J32.2) 07/07/2023 Nasal turbinate hypertrophy (ICD-10 - J34.3) 09/15/2023 Status post nasal surgery (ICD-10 - Z98.890) 07/02/2023 Chronic frontal sinusitis (ICD-10 - J32.1) 05/26/2023 PND (post-nasal drip) (ICD-10 - R09.82) 05/26/2023 Environmental allergies (ICD-10 - Z91.09) 07/02/2023 Nasal septal deviation (ICD-10 - J34.2) 10/07/2023 Chronic frontal sinusitis (ICD-10 - J32.1) 10/07/2023 Environmental allergies (ICD-10 - Z91.09) 07/02/2023 Hypertrophy of inferior nasal turbinate (ICD-10 - J34.3) 05/26/2023 Moderate persistent asthma, unspecified whether complicated (ICD-10 - J45.40) 10/07/2023 Chronic rhinitis (ICD-10 - J31.0) 10/07/2023 PND (post-nasal drip) (ICD-10 - R09.82) 05/26/2023 Other Body mass index material was published 07/02/2023 Other Alcohol use and safe drinking material was published 09/15/2023 Other I have asked th e patient to avoid strenuous activity, lifting greater than 15 pounds, and nose blowing for 1 more week. The patient may use soap and water to gently cleanse the skin of the nose and face. I have encouraged the use of ice or cool compresses as much as possible for the next 48 hours. Use peroxide and Q-tips as needed to clean any bleeding or crusting. Apply Bacitracin ointment to the anterior septum and columellar incision twice daily for 1 more week. Continue nasal saline twice daily until at least the next visit. Return in 4-6 weeks. Plan Of Treatment No Information Insurance Providers Payer Name Payer Address Payer Phone Subscriber Number Group Number Insured Name Patient Relationship to Insured Coverage Start Date Coverage End Date [employer] [address] [address] [address] [place], [place] [id number] Gianni Cooper Spouse - patient is the spouse of the insured Medical (General) History Medical History History ICD Code Asthma/lung disease Anxiety Surgical History Surgery Date(Month/Year) Nose Hysterectomy rhino/septo/turbs 08/2023
--- OUTSIDE RECORDS SUMMARY | 2023-12-01 07:10 | XMS_ITS | Referral Summary ---
Author Organization [facility] Address [address] [place] [address] Care Team Providers Care Development Associate Name Role Phone Rosangela Roberts MD Primary Care Provider [phone] Allergies Active Allergy Reactions Criticality Noted Date [...] CDT Routine general medical examination at a [facility] PAP IMAGED THIN LAYER SCREEN Routine 09/18/2011 Screening for malignant neoplasm of the cervix from Last 3 Months or Most Recently Relevant to Health Maintenance Results * Surgical Pathology Exam (09/09/2023 8:15 AM CDT) Case Report Surgical Pathology Report ? Case: [id number] ? Authorizing Provider: ??Bailee Stephens MD ? Collected: ? 09/09/2023 08:15 AM ? [facility] ? [facility] ?Received: ?09/10/2023 08:37 AM ? [facility] ? Pathologist: ? Horace Ibrahim MD ? Specimens: ?? A) - Sinus ? B) - Sinus ? 09/15/2023 9:[address] [facility] Final Diagnosis A. Right sinus contents: - Chronic sinusitis with allergic type nasal polyps and fragments of benign bone with benign sinus mucosa B. Left sinus contents: - Chronic sinusitis with fragments of benign bone and benign sinus mucosa - Benign peripheral nerve tissue present in specimen 09/15/2023 9:[address] [facility] Clinical Information 48-year-old female. Chronic sinusitis 09/15/2023 9:[address] [facility] Gross Description A(). Sinus, : The [...] following decalcification . (DAVID Dela Cruz [facility]) 09/10/2023 10:16 AM 09/15/2023 9:[address] [facility] Microscopic Description A. The sections of [...] component of this testing was completed at [facility]. Stain controls for all stains resulted within this report have been reviewed and show appropriate reactivity. 09/15/2023 9:50 AM CDT LABORATORY Case Images 09/15/2023 9:50 AM CDT LABORATORY Tissue SINUS / Unknown 09/09/2023 8 :15 AM CDT 09/10/2023 8:37 AM CDT Tissue specimen (specimen) SINUS / Unknown 09/09/2023 8:15 AM CDT 09/10/2023 8:37 AM CDT Bailee Stephens MD LAB - [facility] [address] 1[address] floor, [address] [place] [address], [facility] [phone] * LIPID REFLEX TO DIRECT LDL PANEL (06/15/2013 8:49 AM CDT) Cholesterol 147 <200 mg/dL [facility] ANJELICA ALEXIS Comment: LDL Cholesterol is the primary guide to therapy. The NCEP recommends further evaluation of: patients with cholesterol greater than 200 mg/dL if additional risk factors are present, cholesterol greater than 240 mg/dL, triglycerides greater than 150 mg/dL, or HDL less than 40 mg/dL. Triglycerides 69 0 - 150 mg/dL [facility] HDL Cholesterol 57 >50 mg/dL [facility] LDL Cholesterol Calculated 75 0 - 129 mg/dL [facility] Comment: LDL Cholesterol is the primary guide to therapy: LDL-cholesterol goal in high risk patients is <100 mg/dL and in very high risk patients is <70 mg/dL. VLDL-Cholesterol 14 0 - 30 mg/dL [facility] Cholesterol/HDL Ratio 2.6 0.0 - 5.0 [facility] Blood specimen (specimen) 06/15/2013 8:49 AM CDT 06/15/2013 8:50 AM CDT Emily Adkins PA-C LAB - BLOOD ORDERABLES Performing Organization Address [facility] Co de Phone Number [facility] [address] [place] [phone] * (ABNORMAL) Comprehensive metabolic panel (BMP + Alb, Alk Phos, ALT, AST, Total. Bili, TP) (06/15/2013 8:49 AM CDT) Sodium 141 133 - 144 mmol/L [facility] Potassium 3.8 3.4 - 5.3 mmol/L [facility] Chloride 103 94 - 109 mmol/L [facility] Carbon Dioxide 27 20 - 32 mmol/L [facility] Anion Gap 12 6 - 17 mmol/L [facility] Glucose 82 60 - 99 mg/dL [facility] Comment:Fasting specimen Urea Nitrogen 12 5 - 24 mg/dL [facility] Creatinine 0.68 0.52 - 1.04 mg/dL [facility] GFR Estimate >90 >60 mL/min/1.7 m2 [facility] GFR Estimate If Black >90 >60 mL/min/1.7 m2 [facility] Calcium 8.8 8.5 - 10.4 mg/dL [facility] Bilirubin Total 1.6(H) 0.2 - 1.3 mg/dL [facility] Albumin 4.2 3.9 - 5.1 g/dL [facility] Comment:Reference range [facility] on 11/10/2007. Protein Total 7.1 6.8 - 8.8 g/dL [facility] Comment:As of 07, refer ence range reflects plasma specimen type. Alkaline Phosphatase 60 40 - 150 U/L [facility] ALT 30 0 - 50 U/L [facility] AST 21 0 - 45 U/L [facility] Blood specimen (specimen) 06/15/2013 8:49 AM CDT 06/15/2013 8:50 AM CDT Emily Adkins PA-C LAB - BLOOD ORDERABLES Performing Organization Address [facility]/ZIP Co de Phone Number [facility] [address] [place] [address] * PAP imaged thin layer screen (09/18/2011) PAP Date MISYS PAP MISYS Cytologic material (specimen) Rocky Lo PA-C LAB - OPTIME CLINICAL SPECIMEN MISYS from Last 3 Months or Most Recently Relevant to Health Maintenance Care Teams Development Associate Relationship Specialty Start Date End Date Rosangela Roberts MD PCP - General Speciality Unknown 05/29/17
--- OUTSIDE RECORDS SUMMARY | 2023-12-01 07:10 | XMS_ITS | Encounter Summary ---
Author Organization [facility] Address [address] [place] [address]. [place] [address] Care Team Providers Care Order Manager Name Role Phone Rosangela Roberts MD Primary Care Provider [phone]- [phone] Emy Yates MD Unavailable [phone] Emy Yates MD Unavailable [phone] Melanie Solomon PA-C Unavailable [phone] Reason for Visit * Reason Onset Date Comments MyChart Communication 06/02/2017 Encounter Details Date Type Department Care Team (Late st Contact Info) Description 06/02/2017 MyC Medical Advice [facility] [id number] [place] [id number] [place] [address] [place] [address] MyChart Communication Social History Tobacco [...] documented as of this encounter Care Teams Order Manager Relationship Specialty Start Date End Date Rosangela Roberts MD PCP - General Speciality Unknown 05/29/17 [place] [address] [place] [address] PCP - Assigned PCP 06/01/17 04/21/18 [place] [address] [place] [address] Assigned PCP 06/01/17 06/03/20 Melanie Solomon PA-C [address] [place] [address] Assigned Surgical Provider 02/11/21 09/08/23 documented as of this encounter
--- NOTE | 2023-12-01 09:08 | W.ANESCHARGE ---
Anesthesia Charges Start Date/Time Anesthesia Start Date: 12/01/23 Anesthesia Start Time: 08:37 Stop Date/Time Anesthesia Stop Date: 12/01/23 Anesthesia Stop Time: 09:05
== END 2023-12-01 07:07 | disposition home or self-care (01) ==
LOC: OP CLINIC 07:06
PROVIDERS: PCP Physician Assistant Medical; Visit Provider Surgery
DX: Z12.11 Encounter for screening for malignant neoplasm of colon (principal); K57.30 Diverticulosis of large intestine without perforation or abscess without bleeding
CPT/HCPCS: 00812; 45378; J2704